=== PATIENT | male | born 1945 | race Caucasian/White ===

== ENCOUNTER → 2016-12-10 | Outpatient (CLI) | payer BC ==
[~2016-12-10] MED LIST: AMLO-110 PO; ASPI325T45 PO; ASPI81TA28 PO; ATOR-24 PO; COEN100C7; FERR325T62 PO; GABA-113 PO; LEVO75TA5 PO; LISI-461 PO; METO50TA16 PO; PRLSR20 PO; TRAZ50TA35 PO; UBIQ1CAP8 PO
[2016-12-10 17:38] LABS: BLOOD UREA NITROGEN 25 mg/dl (7-18); BUN/CREATININE RATIO 19.3 (10-20); CALCIUM 9.1 mg/dl (8.5-10.1); CARBON DIOXIDE 29 mmol/L (21-32); CHLORIDE 105 mmol/L (98-107); GLUCOSE 96 mg/dl (70-99); POTASSIUM 4.7 mmol/L (3.5-5.1); SODIUM 141 mmol/L (136-145)
== END | disposition home or self-care (01) ==
LOC: C.LABPVFM 16:06
PROVIDERS: ATTEND Family Medicine
DX: G62.9 Polyneuropathy, unspecified (principal)

== ENCOUNTER → 2017-02-16 | Outpatient (CLI) | payer BC ==
[2017-02-16 18:23] LABS: BLOOD UREA NITROGEN 21 mg/dl (7-18); BUN/CREATININE RATIO 17.6 (10-20); CALCIUM 9.3 mg/dl (8.5-10.1); CARBON DIOXIDE 29 mmol/L (21-32); CHLORIDE 103 mmol/L (98-107); GLUCOSE 92 mg/dl (70-99); POTASSIUM 4.6 mmol/L (3.5-5.1); SODIUM 137 mmol/L (136-145)
[2017-02-16 18:35] LABS: CHOLESTEROL 134 mg/dl (0-200); CHOLESTEROL/HDL RATIO 2.6; HDL CHOLESTEROL 51 mg/dl; LDL CHOLESTEROL CALCULATED 63 mg/dl; TRIGLYCERIDES 99 mg/dl (0-150); VERY LOW DENSITY LIPOPROT CALC 20 mg/dl
== END | disposition home or self-care (01) ==
LOC: C.LABPVFM 11:21
PROVIDERS: ATTEND Family Medicine
DX: I25.10 Atherosclerotic heart disease of native coronary artery without angina pectoris (principal); I10 Essential (primary) hypertension; E03.9 Hypothyroidism, unspecified

== ENCOUNTER → 2017-02-17 | Outpatient (CLI) | payer BC ==
[~2017-02-17] MED LIST changes: +GADAVIST IV PRN
--- NOTE | 2017-02-17 18:47 | DIAGNOSTIC IMAGING REPORT ---
LUMBAR SPINE COMBINATION CLINICAL HISTORY: 71 years-old Male presenting with pain in the left hip radiating down to the left foot, trouble walking, symptomatic since November 2016. TECHNIQUE: Multisequence, multiplanar MR imaging of the lumbar spine was performed before and after the administration of intravenous contrast. IV contrast: 7.5 mL of Gadavist. COMPARISON: 10/29/2007. FINDINGS: Localizer images: Unremarkable. Normal lumbar lordosis. Vertebral body heights, alignment, and signal intensity preserved. Mild intervertebral disc desiccation with minimal height loss at L5-S1. Mild multilevel degenerative changes with disc bulges noted at most levels, further detailed below: T12-L1: Normal. L1-2: Mild disc bulge which minimally effaces the ventral thecal sac. No significant neural foraminal narrowing. L2-3: Minimal disc bulge without significant result. L3-4: Mild disc bulge with moderate right and mild left neural foraminal narrowing. In combination with ligamentum flavum hypertrophy, effacement of the thecal sac without evidence of cauda equina impingement. L4-5: Mild disc bulge results in moderate bilateral neural foraminal narrowing with possible mass effect on the exiting L4 nerve roots. Effacement of the ventral thecal sac without evidence of impingement of the cauda equina. L5-S1: Minimal disc bulge. In combination with facet hypertrophy, mild right and moderate left neural foraminal narrowing results. No significant spinal canal stenosis. Spinal cord ends in good position at superior endplate of L1. Cauda equina normal in morphology. Paraspinal musculature normal. No abnormal enhancement on postcontrast imaging. IMPRESSION: Multilevel degenerative changes not significantly progressed since the prior exam in 2007. Varying degrees of neural foraminal narrowing most severe at L4-5. No significant spinal canal stenosis. No abnormal enhancement. Electronically signed by: Miles Olivera M.D. 02/17/2017 6:45 PM Dictated Date/Time: 02/17/2017 6:30 PM
== END | disposition home or self-care (01) ==
LOC: C.MRI 17:38
PROVIDERS: ATTEND Family Medicine
DX: G62.9 Polyneuropathy, unspecified (principal); M54.16 Radiculopathy, lumbar region

== ENCOUNTER → 2017-06-08 | Outpatient (CLI) | payer BC ==
[~2017-06-08] MED LIST changes: -ASPI325T45 PO; -FERR325T62 PO; -GADAVIST IV PRN; -UBIQ1CAP8 PO
--- NOTE | 2017-06-08 16:03 | DIAGNOSTIC IMAGING REPORT ---
TWO VIEW CHEST CLINICAL HISTORY: Pleural plaques. FINDINGS: PA and lateral chest radiographs are compared to study dated 03/05/2016 and correlated with chest CT dated 08/21/14. The patient is status post midline sternotomy. The heart is mildly enlarged and there is atherosclerotic calcification of the thoracic aorta. The pulmonary vasculature is noncongested. Calcified pleural plaques are similar to previous. There is no evidence of airspace consolidation or pleural effusion. Scattered calcified granulomas are similar to previous. There is no pneumothorax. The skeletal structures are osteopenic. The bony thorax appears intact. IMPRESSION: 1. Mild cardiomegaly with no acute cardiopulmonary abnormality. 2. 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 Electronically signed by: Topher Hicks M.D. 06/08/2017 4:02 PM Dictated Date/Time: 06/08/2017 4:00 PM
== END | disposition home or self-care (01) ==
LOC: C.RAD1850 15:24
PROVIDERS: ATTEND Internal Medicine Pulmonary Disease
DX: J92.0 Pleural plaque with presence of asbestos (principal)

== ENCOUNTER → 2017-06-08 | Outpatient (CLI) | payer BC | END | disposition home or self-care (01) | LOC: C.LAB1850 13:59 | PROVIDERS: ATTEND Internal Medicine Pulmonary Disease | DX: R91.1 Solitary pulmonary nodule (principal) ==

== ENCOUNTER → 2017-07-22 | Outpatient (CLI) | payer BC ==
[~2017-07-22] MED LIST changes: -AMLO-110 PO; +AMLO5TAB3 PO
[2017-07-22 14:20] LABS: ALBUMIN 3.9 gm/dl (3.4-5.0); ALKALINE PHOSPHATASE 107 U/L (45-117); BLOOD UREA NITROGEN 25 mg/dl (7-18); CALCIUM 9.1 mg/dl (8.5-10.1); CARBON DIOXIDE 26 mmol/L (21-32); CREATININE 1.36 mg/dl (0.60-1.40); GLUCOSE 87 mg/dl (70-99); POTASSIUM 4.3 mmol/L (3.5-5.1); SODIUM 138 mmol/L (136-145); TOTAL PROTEIN 7.2 gm/dl (6.4-8.2)
[2017-07-22 14:24] LABS: ALT/SGPT 33 U/L (12-78); AST/SGOT 17 U/L (15-37); CHOLESTEROL 172 mg/dl (0-200); LDL CHOLESTEROL CALCULATED 89 mg/dl
== END | disposition home or self-care (01) ==
LOC: C.LABPVFM 08:36
PROVIDERS: ATTEND Family Medicine
DX: I10 Essential (primary) hypertension (principal); E78.5 Hyperlipidemia, unspecified

== ENCOUNTER → 2017-08-12 | Outpatient (CLI) | payer BC ==
[~2017-08-12] MED LIST changes: +AMLO-110 PO; -AMLO5TAB3 PO
[2017-08-12 13:28] LABS: BLOOD UREA NITROGEN 21 mg/dl (7-18); CALCIUM 8.9 mg/dl (8.5-10.1); CARBON DIOXIDE 28 mmol/L (21-32); CREATININE 1.26 mg/dl (0.60-1.40); GLUCOSE 84 mg/dl (70-99); SODIUM 137 mmol/L (136-145)
== END | disposition home or self-care (01) ==
LOC: C.LABPVFM 08:29
PROVIDERS: ATTEND Internal Medicine Cardiovascular Disease
DX: I10 Essential (primary) hypertension (principal)

== ENCOUNTER 2021-01-07 07:05 | Observation (INO) ==
--- NOTE | 2021-01-02 16:12 | Anesthesiology Consultation ---
Date of Service January 02, 2021 Assessment & Plan (1) Encounter for pre-operative examination: - COVID screening: Per assessment on 01/02: No known COVID-19 positive contacts or current COVID-19 related symptoms. Travel screen- Patient returned from [facility] to [place] 12/29. Patient vaccinated. Patient had preop COVID testing done 01/01; [place]- which was negative. Given proximity of travel to preop COVID testing, will order [place] for AM DOS. - Heart/vascular office visit (12/19/20): "he is a moderate risk to proceed with surgery for his cholecystectomy. His RCRI calculates to 6% 30-day risk for , MO, or cardiac arrest. I am hopeful that we can get his exertional angina under control before his surgery. Otherwise he should probably have a cardiac catheterization prior to surgery which would push his surgery back at least 6 months. In that event we will need to discuss with patient and surgery whether pushing his surgery back is reasonable for if his indications for cholecystectomy have become more urgent." - Heart/vascular addendum (12/28/20): Phone call followup. Patient denies chest pain. " He should let me know when he starts doing his regular walks with hills if the chest pain comes back. I reiterated to him that we need to make sure that his chest pain is under control before he would go for surgery that is planned for the . He will give me a call on his return to let me know if he has any further chest discomfort." > I called patient 01/02 for an update. He states for the past few days he has been resuming his normal regular walks (including hills) and he has had no chest pain or CURRAN. - Preop labs: No CBC obtained. Will order for AM DOS Chart Review Chart Review: Acceptable Risk for Surgery (pending CBC/evaluation AM DOS) and Patient NOT seen in Pre Admission Testing History Surgery Operation Date: 01/07/21 09:50 Proposed Procedures p Laparoscopic Cholecystectomy - Yuri Lafleur MD, FACS Height/Weight Height: 5 ft 9 in Weight: 77.111 kg Allergies Allergy/AdvReac Type Severity Reaction Status Date / Time No Known Allergies Allergy Verified 12/21/20 11:40 Medications Home Medications Medication Instructions Recorded Confirmed Last Taken amlodipine 5 mg tablet 5 mg PO BID 06/01/19 12/21/20 Unknown lisinopril 20 mg tablet 20 mg PO QAM 06/01/19 12/21/20 Unknown rosuvastatin 40 mg tablet 20 mg PO HS 06/06/19 12/21/20 Unknown metoprolol succinate 25 mg 25 mg PO BID tab 10/18/20 12/21/20 Unknown tablet,extended release 24 hr nitroglycerin 0.4 mg sublingual 0.4 mg SUBLINGUAL Q5M PRN 10/18/20 12/21/20 Unknown tablet omeprazole 20 mg capsule,delayed 20 mg PO BID cap 10/18/20 12/21/20 Unknown release Coq10 Otc 120 mg PO QPM 12/21/20 12/21/20 Unknown aspirin [Aspir-81] 81 mg PO QPM 12/21/20 12/21/20 Unknown isosorbide mononitrate 30 mg PO QAM 12/21/20 12/21/20 Unknown levothyroxine 75 mcg PO QAM 12/21/20 12/21/20 Unknown Past Medical History Medical History (Updated 01/02/21 @ 16:01 by Carmina Antoine) CAD (coronary artery disease) CABG x4 (04/2013)- Follows with Dr. Hogan Dyslipidemia Erectile dysfunction Hiatal hernia Insomnia Lumbar radiculopathy Nephrolithiasis Peripheral neuropathy Pleural plaque with presence of asbestos Retinal detachment Hx, no surgical intervention Solitary pulmonary nodule Under surveillance by Dr. Gandara Vertigo Remote hx 4+ years ago Past Family History Family History Sister Breast cancer Father Myocardial infarction Heart disease Grandfather Myocardial infarction Other Coronary heart disease Denies family history of Ovarian cancer Prostate cancer Colorectal cancer Past Surgical History Surgical History (Updated 01/02/21 @ 15:58 by Carmina Antoine) H/O colonoscopy (~2012) History of dental surgery Implants History of esophagogastroduodenoscopy (EGD) History of lithotripsy S/P CABG x 4 CABG x4 (04/2013) Social History Smoking Status: Former smoker Smoking End Date: QUIT 40 YRS AGO Hx Alcohol Use: Yes Alcohol type: wine alcohol intake frequency: a few times a week Hx Substance Use: No Lab Results Anesthesia Preop Results Results Anesthesia Widget: Na 141 mmol/L (136-145) 11/15/20 K 4.4 mmol/L (3.5-5.1) 11/15/20 Cl 112 mmol/L (98-107) H 11/15/20 CO2 26 mmol/L (21-32) 11/15/20 BUN 25 mg/dl (7-18) H 11/15/20 Creat 1.20 mg/dl (0.6-1.4) 11/15/20 Glucose Level 101 mg/dl (70-99) H 11/15/20 TSH 2.330 uIu/ml (0.300-4.500) 11/15/20 HA1c 6.0 % (4.5-5.6) H 11/15/20 Testing Laboratory Results Electrocardiogram Date: 01/01/21 Sinus bradycardia 56 bpm. Incomplete right bundle branch block. Chest X-Ray Date: 05/28/20 FINDINGS: There are postsurgical changes of a midline sternotomy. The heart is normal in size. There is no failure. There are bilateral calcified pleural plaques. There is a stable 6 mm right midlung zone nodule, likely postinflammatory. There are a few scattered calcified granulomas. There is no focal parenchymal consolidation. There are no pleural effusions. IMPRESSION: Persistent calcified bilateral pleural plaques. No active disease in the chest. Echocardiogram Date: 11/17/20 Prior cardiology office visit note, patient had echo performed November 2020 with "normal ejection fraction though somewhat hyperdynamic possibly secondary to dehydration. No wall motion abnormalities. He has top normal pulmonary artery pressures." Attempts to obtain official report unsuccessful.
[~2021-01-07 07:05] MED LIST changes: -AMLO-110 PO; -ASPI81TA28 PO; -ATOR-24 PO; -COEN100C7; -GABA-113 PO; -LEVO75TA5 PO; -LISI-461 PO; +LR 15ML/HR IV SCH; -METO50TA16 PO; -PRLSR20 PO; -TRAZ50TA35 PO; +cefUROXime 1,500 MG in DEXTROSE 5% 100 ML IV SCH
[2021-01-07 07:34] LABS: Basophils # (auto) 0.01 K/uL (0-0.2); Basophils % (auto) 0.2 %; Eosinophils # (auto) 0.14 K/uL (0-0.5); Eosinophils % (auto) 2.3 %; Hematocrit (blood only) 40.1 % (42-52); Hemoglobin 13.7 g/dL (14.0-18.0); Immature Granulocytes # (auto) 0.01 K/uL (0.00-0.02); Immature Granulocytes % (auto) 0.2 %; Lymphocytes # (auto) 1.32 K/uL (1.2-3.4); Lymphocytes % (auto) 21.5 %; Mean Corpuscular Hemoglobin 31.6 pg (25-34); Mean Corpuscular Volume 92.6 fL (80-100); Mean Platelet Volume 9.5 fL (7.4-10.4); Monocytes # (auto) 0.56 K/uL (0.11-0.59); Monocytes % (auto) 9.1 %; Neutrophils % (auto) 66.7 %; Platelet Count 172 K/uL (130-400); RDW Coefficient of Variation 13.6 % (11.5-14.5); RDW Standard Deviation 46.3 fL (36.4-46.3); Red Blood Count 4.33 M/uL (4.7-6.1); White Blood Count 6.14 K/uL (4.8-10.8)
[2021-01-07 07:38] LABS: Mean Corpuscular Hgb Conc 34.2 g/dL (32-36)
[2021-01-07] MEDS ORDERED: HYDROmorphone INJ 1 MG/ML SYRINGE IV PRN ×2 (08:20→12:46)
[2021-01-07] MEDS ORDERED: PROMETHAZINE HCL 12.5 MG in SODIUM CHLORIDE 0.9% 50 ML IV PRN (08:20)
[2021-01-07] MEDS ORDERED: fentaNYL citrate 100 MCG/2 ML VIAL IV PRN (08:20)
[2021-01-07] MEDS ORDERED: NALOXONE HCL 0.4 MG/1 ML VIAL/CARP IV PRN (08:20)
[2021-01-07] MEDS ORDERED: LABETALOL HCL IV 5 MG/ML 20ML IV PRN (08:20)
[2021-01-07] MEDS ORDERED: ATROPINE SULFATE 0.1 MG/ML 10ML SYR IV PRN (08:20)
[2021-01-07] MEDS ORDERED: ePHEDrine sulfate 50 MG/ML AMP IV PRN (08:20)
[2021-01-07] MEDS ORDERED: FLUMAZENIL 0.1 MG/1 ML 10 ML VIAL IV PRN (08:20)
[2021-01-07] MEDS ORDERED: ONDANSETRON INJ 2 MG/ML 2 ML VIAL IV PRN (08:20)
[2021-01-07] MEDS ORDERED: BUPIVACAINE 0.5 % 5 MG/1 ML MPF 30ML VIAL ONE (08:35)
[2021-01-07] MEDS ORDERED: fentaNYL citrate 100 MCG/2 ML VIAL ONE ×2 (08:47→09:12)
[2021-01-07] MEDS ORDERED: MIDAZOLAM HCL 1 MG/ML 2ML VIAL ONE (08:47)
[2021-01-07] MEDS ORDERED: LIDOCAINE 2% 2 ML VIAL/AMP(20MG/ML) INFIL ONE (08:47)
[2021-01-07] MEDS ORDERED: PHENYLEPHRINE 100MCG/ML 5ML SYR ONE (09:19)
[2021-01-07] MEDS ORDERED: ePHEDrine sulfate 50 MG/ML SYR ONE (09:19)
[2021-01-07] MEDS ORDERED: ACETAMINOPHEN 1000 MG/100 ML IV IV ONE (09:20)
[2021-01-07] MEDS ORDERED: ROCURONIUM BROMIDE 10 MG/ML 5 ML VIAL IV ONE (09:34)
[2021-01-07] MEDS ORDERED: GLYCOPYRROLATE 0.2 MG/ML VIAL ONE (09:34)
[2021-01-07] MEDS ORDERED: NEOSTIGMINE METHYLSULFATE 1 MG/ML 10ML VIAL ONE (09:34)
[2021-01-07] MEDS ORDERED: OPTIRAY 300 100mL IV PRN (09:59)
--- NOTE | 2021-01-07 10:46 | Fluoroscopy Report ---
FL cholangiogram OR CLINICAL HISTORY: CHOLANGIOGRAMendoscopic cholecystectomy COMPARISON STUDY: None FLUOROSCOPY TIME: 27 seconds. NUMBER OF FLUOROSCOPIC IMAGES: 1 FINDINGS: A single intraoperative fluoroscopic spot images provided for interpretation. There is an apparent balloon catheter within the common hepatic duct near the hilum. There is dilatat ion of the left lobe hepatic ducts. The right lobe hepatic ducts or not visualized. The common bile d uct is nonvisualized. IMPRESSION: 1. Single intraoperative fluoroscopic spot film. The common bile duct was nonvisualized. The right he patic ducts were not visualized. There is dilatation of the left lobe hepatic ducts. ACT 112: Negative or not required by law. Electronically signed by: Kobe Pierre M.D. 01/07/2021 10:44 AM
[2021-01-07] MEDS ORDERED: ACETAMINOPHEN 1,000 MG/100 ML VIAL IV ONE (10:54)
--- NOTE | 2021-01-07 10:54 | Post Operative Brief Note ---
PG Immediate Post Op with CF Date of Surgery January 07, 2021 Pre & Post Diagnosis Operation Date: 01/07/21 08:30 Pre-Op Diagnosis: Chronic Cholecystitis Post-Op Diagnosis: Chronic Cholecystitis, common bile duct injury, adhesions I identified the patient and participated in the time-out.: Yes Procedure Operation Date: 01/07/21 08:30 Actual Procedures p Laparoscopic Cholecystectomy, with Cholangiogram(Not Applicable) - Yuri Lafleur MD, FACS Surgeon Yuri Lafleur MD, FACS Commissary Production Supervisor Holly Cervantes Estimated Blood Loss 10 Findings Consistent with Post-Op Diagnosis Specimens Specimen Description: A: Gallbladder and Contents Drains Marcell-Gilliland Drain (15 fr and 19 fr )
--- NOTE | 2021-01-07 11:44 | Operative Report (OR) ---
NAME OF OPERATION: Laparoscopic cholecystectomy with cholangiogram. PREOPERATIVE DIAGNOSIS: Biliary colic. POSTOPERATIVE DIAGNOSIS: Biliary colic with severe chronic cholecystitis, adhesions, and common bile duct injury. SURGEON: Yuri Lafleur MD SANDING MACHINE OPERATOR OR TENDER: Tanner Cervantes PA-C ANESTHESIA: General. DESCRIPTION OF PROCEDURE: The patient was brought into the operating room and placed on the operating table in supine position. His abdomen was prepped and draped in the usual fashion. A 0.5% plain Marcaine was used to anesthetize all incisions. An incision was made above the umbilicus, carrying dissection down, placing a Veress needle producing pneumoperitoneum and placing an 11 mm port. Under visualization, three 5 mm ports were placed, one cephalad and two laterally. On inspection of the gallbladder, he had chronic adhesions to the gallbladder and the gallbladder was chronically thickened and scarred. On taking these adhesions down, the emerson hepatis was somewhat distorted because of the adhesions. Therefore, I placed an additional port to retract the tissue in the emerson hepatis. Dissection through the emerson hepatis identified what I felt was the cystic duct going into the gallbladder, it was mobilized and then clipped. It was relatively wide and I did place at least two additional clips and then on my further dissection, I was somewhat concerned that this may be the common bile duct. It was very adherent to the gallbladder, drained normal looking bile, on further proximal dissection it appeared to continue away from the gallbladder medially which is when I became concerned that this was the common bile duct. There was probably 3 cm in length of the ductal structure. Therefore, I performed cholangiography which did fill what I thought was the proximal common bile duct and intrahepatic ducts, specifically on the left side. I did not visualize the right side well, possibly obstructed by my balloon. At this point, I decided that it would be better to not place any additional clips on the duct, leave it open and place drains. The balloon on my cannula was at least 2 cm into the ductal structure indicating a relatively long segment of duct coming from the liver. The gallbladder was removed from the liver bed, placed into an Endobag. A 19 round Marcell-Gilliland drain was placed through a lateral 5 mm port site and then a 15 round Marcell-Gilliland drain through the more middle upper 5 mm port site. These were secured using 3-0 nylon. They were placed in the subhepatic space. The gallbladder was removed through the umbilical site. All ports were removed. The fascia at the umbilicus was closed using 0 PDS suture and the skin reapproximated at all incisions using 4-0 nylon. The patient was transferred to recovery room in stable condition. Job ID: [id number] [facility]
--- NOTE | 2021-01-07 11:44 | Anesthesiology Progress Note ---
Date of Service January 07, 2021 Anesthesia Post Procedure Vital Signs Vital Signs: Temp Pulse Pulse Resp BP BP Pulse Ox 01/07/21 11:40 64 14 127/63 96 01/07/21 11:30 36.1 C L 55 L 14 127/57 L 95 01/07/21 11:20 57 L 14 108/56 L 97 01/07/21 11:10 60 14 116/63 96 01/07/21 11:00 77 14 131/69 98 01/07/21 10:54 36.1 C L 70 18 143/60 H 98 01/07/21 07:34 36.5 C 101 H 20 178/81 H 96 Pain Intensity Right Abdomen: Pain Intensity: 5 Transfer of Care Handoff Completed per policy Notes Mental Status: alert / awake / arousable Patient Amnestic to Procedure: Yes Nausea / Vomiting: adequately controlled Pain: adequately controlled Airway Patency, RR, SpO2: stable & adequate BP & HR: stable & adequate Hydration State: stable & adequate Anesthetic Complications: no major complications apparent
[2021-01-07] MEDS ORDERED: NITROGLYCERIN SL 0.4 MG/TAB TAB SL PRN (12:46)
[2021-01-07] MEDS ORDERED: PROMETHAZINE HCL 25 MG in SODIUM CHLORIDE 0.9% 50 ML IV PRN (12:46)
[2021-01-07] MEDS ORDERED: PIPERACILL/TAZOBAC CONSULT ACTIVE PRN (12:46)
--- NOTE | 2021-01-07 12:59 | Surgery Progress Note ---
Date of Service January 07, 2021 Assessment & Plan (1) S/P laparoscopic cholecystectomy: Patient status post laparoscopic cholecystectomy and common bile duct injury with leakage Cholangiogram confirmed from my standpoint injury to the common bile duct Common bile duct left open with drains placed, patient draining bilious fluid His vital signs are stable I have discussed this with his and the fact that the patient will need to be transferred to a tertiary care center I have discussed the patient with Dr. Srivastava, surgeon at [facility] and they have accepted the patient Patient will be transferred as soon as a bed is available I have discussed this with the patient and his Admission and Anticipated Discharge Date Admission Date: January 07, 2021 Results & Data ([facility]) Vital Signs (Past 12 Hours) Vital Signs Temp Pulse Pulse Resp BP BP Pulse Ox 01/07/21 12:53 36.4 C L 72 18 136/64 94 01/07/21 12:15 64 14 127/66 95 01/07/21 12:00 36.4 C L 63 14 116/54 L 95 01/07/21 11:50 64 14 126/58 L 96 01/07/21 11:40 64 14 127/63 96 01/07/21 11:30 36.1 C L 55 L 14 127/57 L 95 01/07/21 11:20 57 L 14 108/56 L 97 01/07/21 11:10 60 14 116/63 96 01/07/21 11:00 77 14 131/69 98 01/07/21 10:54 36.1 C L 70 18 143/60 H 98 01/07/21 07:34 36.5 C 101 H 20 178/81 H 96 PG Care Time/CCT Total # of Minutes Spent Total Time Spent with Patient: Total time spent is greater than 50% in coordination of care (as documented) at patient's floor/unit and/or counseling patient: Coding Level of Care Code None Diagnoses S/P laparoscopic cholecystectomy Z90.49
[2021-01-07 13:08] LABS: Hematocrit (blood only) 36.5 % (42-52); Hemoglobin 12.5 g/dL (14.0-18.0); Immature Granulocytes # (auto) 0.02 K/uL (0.00-0.02); Immature Granulocytes % (auto) 0.2 %; Lymphocytes # (auto) 0.52 K/uL (1.2-3.4); Lymphocytes % (auto) 4.1 %; Mean Corpuscular Hemoglobin 31.6 pg (25-34); Mean Corpuscular Hgb Conc 34.2 g/dL (32-36); Mean Corpuscular Volume 92.2 fL (80-100); Mean Platelet Volume 9.9 fL (7.4-10.4); Monocytes # (auto) 0.12 K/uL (0.11-0.59); Neutrophils # (auto) 11.95 K/uL (1.4-6.5); Neutrophils % (auto) 94.7 %; Platelet Count 168 K/uL (130-400); RDW Coefficient of Variation 13.2 % (11.5-14.5); RDW Standard Deviation 45.2 fL (36.4-46.3); Red Blood Count 3.96 M/uL (4.7-6.1); White Blood Count 12.61 K/uL (4.8-10.8)
[2021-01-07] MEDS ORDERED: PIPERACILLIN/TAZOBACTAM 3.375 GM in DEXTROSE 5% 100 ML IV ONE (13:30)
[2021-01-07 13:46] LABS: Albumin Level 3.4 gm/dl (3.4-5.0); BUN Creatinine Ratio 18.4 (10-20); Calcium 8.7 mg/dl (8.5-10.1); Creatinine Clr Calc Pharmacy 52.3 ml/min; Est GFR (Non-African American) 56.9 ml/min; Globulin 3.3 gm/dl (2.5-4.0); Potassium 4.1 mmol/L (3.5-5.1); Total Protein 6.7 gm/dl (6.4-8.2)
[2021-01-07] MEDS: PROMETHAZINE HCL 12.5 MG in SODIUM CHLORIDE 0.9% 50 ML IV PRN ×2 (13:49→19:21)
[2021-01-07] MEDS: HYDROmorphone INJ 0.5 MG/0.5 ML SYR IV PRN ×2 (13:50→18:19)
[2021-01-07 13:56] LABS: Bilirubin Direct 0.1 mg/dl (0-0.2); Bilirubin,Total 0.5 mg/dl (0.2-1); Phosphorus 2.7 mg/dl (2.5-4.9)
--- NOTE | 2021-01-07 13:56 | Hospitalist Consultation ---
Date of Consultation January 07, 2021 Assessment & Plan (1) S/P laparoscopic cholecystectomy: Mr. 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 Patient currently complains of RUQ pain that radiates to his right posterior shoulder and he also complains of nausea -- he will be getting an anti-emetic and an analgesic as soon as the nurse returns. He denies any vomiting. He denies any fevers, chills, chest discomfort or any angina pectoris. He denies any shortness of breath, cough, or pleuritic chest discomfort. Intra-operative Cholangiogram 01/07/21: A single intraoperative fluoroscopic spot images provided for interpretation. There is an apparent balloon catheter within the common hepatic duct near the hilum. There is dilatation of the left lobe hepatic ducts. The right lobe hepatic ducts or not visualized. The common bile duct is nonvisualized. IMPRESSION: 1. Single intraoperative fluoroscopic spot film. The common bile duct was nonvisualized. The right hepatic ducts were not visualized. There is dilatation of the left lobe hepatic ducts. Surgical drains placed and patient is being transferred to [facility] as soon as a bed is available. -- Patient is hemodynamically stable at the present time, and he is getting IV Zosyn. (2) Hx of CABG: CAD s/p CABG x 5 Vessels (SIMMS to LAD, SVG to PDA, Sequential SVG to OM1, D1, OM2) April 2013. -- No angina pectoris. -- Continue Aspirin 81 mg daily. -- Continue Metoprolol Succinate ER 25 mg b.i.d. -- Continue Imdur ER 30 mg daily. -- Continue Lisinopril 20 mg daily. -- Continue Rosuvastatin 40 mg daily. (3) Hypertension: -- Continue Metoprolol Succinate ER 25 mg b.i.d. -- Continue Imdur ER 30 mg daily. -- Continue Lisinopril 20 mg daily. -- Continue Amlodipine 5 mg b.i.d.. (4) Hypercholesterolemia: -- Continue Rosuvastatin 40 mg daily. (5) GERD (gastroesophageal reflux disease): -- Continue PPI. Supervising Physician Co-Signing Physician Notes Reviewed JL note discussed with him briefly. This is a 75-year-old male who was here for elective cholecystectomy, complicated by transection of the patient's common bile duct. The patient has since been transferred to [facility] for higher level of care and is no longer being cared for at this institution. History of Present Illness Reason for Consultation: -- s/p Laparoscopic Cholecystectomy complicated by Bile Duct Injury. -- CAD s/p CABG. Requesting Physician: Yuri Lafleur MD, FACS Attending Physician: Cuco Serrano DO History of Present Illness Mr. 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 [facility] Hospitalists consulted for Post-op Medical Management. Patient currently complains of RUQ pain that radiates to his right posterior shoulder and he also complains of nausea -- he will be getting an anti-emetic and an analgesic as soon as the nurse returns. He denies any vomiting. He denies any fevers, chills, chest discomfort or any angina pectoris. He denies any shortness of breath, cough, or pleuritic chest discomfort. His vital signs are stable, and he is getting IV Zosyn. Due to the common bile duct injury, surgical drains were placed and patient is being transferred to [facility] as soon as a bed is available. Allergies Allergy/AdvReac Type Severity Reaction Status Date / Time No Known Allergies Allergy Verified 01/07/21 07:29 Home Medications Medication Instructions Recorded Confirmed Type amlodipine 5 mg tablet 5 mg PO BID 06/01/19 01/07/21 History lisinopril 20 mg tablet 20 mg PO QAM 06/01/19 01/07/21 History rosuvastatin 40 mg tablet 20 mg PO HS 06/06/19 01/07/21 History metoprolol succinate 25 mg 25 mg PO BID tab 10/18/20 01/07/21 History tablet,extended release 24 hr nitroglycerin 0.4 mg sublingual 0.4 mg SUBLINGUAL Q5M PRN 10/18/20 01/07/21 History tablet omeprazole 20 mg capsule,delayed 20 mg PO BID cap 10/18/20 01/07/21 History release Coq10 Otc 120 mg PO QPM 12/21/20 01/07/21 History aspirin 81 mg PO QPM 12/21/20 01/07/21 History isosorbide mononitrate 30 mg PO QAM 12/21/20 01/07/21 History levothyroxine 75 mcg PO QAM 12/21/20 01/07/21 History hydrocodone-acetaminophen 1 tab PO Q4H PRN #20 tab 01/07/21 Rx promethazine 25 mg PO Q6H PRN #10 tab 01/07/21 Rx Patient History Medical History CAD (coronary artery disease) CABG x4 (04/2013)- Follows with Dr. Hogan Dyslipidemia Erectile dysfunction Hiatal hernia Insomnia Lumbar radiculopathy Nephrolithiasis Peripheral neuropathy Pleural plaque with presence of asbestos Retinal detachment Hx, no surgical intervention Solitary pulmonary nodule Under surveillance by Dr. Gandara Vertigo Remote hx 4+ years ago Surgical History H/O colonoscopy (~2012) History of dental surgery Implants History of esophagogastroduodenoscopy (EGD) History of lithotripsy S/P CABG x 4 CABG x4 (04/2013) Family History Sister Breast cancer Father Myocardial infarction Heart disease Grandfather Myocardial infarction Other Coronary heart disease Denies family history of Ovarian cancer Prostate cancer Colorectal cancer Social History Smoking Status: Former smoker Smoking End Date: QUIT 40 YRS AGO; Second Hand Exposure: No; Hx Alcohol Use: Yes Alcohol type: wine Alcohol Intake Frequency: Monthly or Less Hx Substance Use: No Preferred Language: Slovenian Communication Ability: Effective Visual Impairment: No Limitations Hearing Ability: Normal Public Relations Required: No Beliefs That Will Affect Care: None marital status: Current Living Situation: Spouse current occupational status: retired Other Information That Helps Us Care for You: No Feels Safe at Home: Yes Safety Concerns: Feels Safe At This Time Childhood Exposure to Second-Hand Smoke: No caffeine: Yes Dental Care, Regularly: Yes Physical Activity Frequency: 5-6 Times per Week Seatbelt Use: always Sunscreen Use: Yes Assistive Devices: Glasses Assistive Devices Comment: IMPLANTS Review of Systems Review of Systems: All systems reviewed & are unremarkable except as noted in Subjective Physical Exam Physical Exam: GENERAL: Patient is lying in his bed, abdomen dressed, surgical drains in place. HEENT: Head is atraumatic, normocephalic. EOM's intact. Facies symmetric. No perioral cyanosis. NECK: No JVD. JVP is not elevated. Carotid upstrokes are + 2 bilaterally without obvious bruits. CHEST/LUNGS: Clear to auscultation throughout all lung mercado. No wheezes, rales, or crackles. CVS: S1 and S2 are regular without obvious murmurs, gallops, or rubs. PMI is nondisplaced. No lifts, heaves, or thrills. No abdominal aortic or renal bruits. ABDOMINAL EXAM: Surgical dressings and drains are in place. No masses, organomegaly, or tenderness. EXTREMITIES: No clubbing or cyanosis. No edema. Intact radial pulses bilaterally. NEUROLOGIC EXAM: Patient is awake, alert, and oriented. Pleasant and cooperative. Answers questions appropriately. Speech is clear. Results & Data Results & Data ([facility]) Vital Signs (Past 12 Hours) Vital Signs Temp Pulse Pulse Resp BP BP Pulse Ox 01/07/21 13:30 36.3 C L 68 20 120/56 L 92 01/07/21 13:09 36.3 C L 72 18 133/61 90 01/07/21 12:53 36.4 C L 72 18 136/64 94 01/07/21 12:15 64 14 127/66 95 01/07/21 12:00 36.4 C L 63 14 116/54 L 95 01/07/21 11:50 64 14 126/58 L 96 01/07/21 11:40 64 14 127/63 96 01/07/21 11:30 36.1 C L 55 L 14 127/57 L 95 01/07/21 11:20 57 L 14 108/56 L 97 01/07/21 11:10 60 14 116/63 96 01/07/21 11:00 77 14 131/69 98 01/07/21 10:54 36.1 C L 70 18 143/60 H 98 01/07/21 07:34 36.5 C 101 H 20 178/81 H 96 Laboratory Results Laboratory Results - last 24 hr 01/07/21 01/07/21 01/07/21 07:25 07:26 07:26 WBC 6.14 RBC 4.33 L Hgb 13.7 L Hct 40.1 L MCV 92.6 MCH 31.6 MCHC 34.2 RDW Std Deviation 46.3 RDW Coeff of Yajaira 13.6 Plt Count 172 MPV 9.5 Immature Gran % (Auto) 0.2 Neut % (Auto) 66.7 Lymph % (Auto) 21.5 [place] % (Auto) 9.1 Eos % (Auto) 2.3 Baso % (Auto) 0.2 Neut # (Auto) 4.10 Lymph # (Auto) 1.32 [place] # (Auto) 0.56 Eos # (Auto) 0.14 Baso # (Auto) 0.01 Immature Gran # (Auto) 0.01 Sodium Potassium Chloride Carbon Dioxide Anion Gap BUN Creatinine Est Cr Clr Drug Dosing Est GFR ( Amer) Est GFR (Non-Af Amer) BUN/Creatinine Ratio Glucose Calcium Phosphorus Total Bilirubin Direct Bilirubin AST ALT Alkaline Phosphatase Total Protein Albumin Globulin Albumin/Globulin Ratio COVID-19 Eval Order Covid19 [facility] SARS-CoV-2, RNA, NAAT NEGATIVE 01/07/21 01/07/21 12:55 12:55 WBC 12.61 H RBC 3.96 L Hgb 12.5 L Hct 36.5 L MCV 92.2 MCH 31.6 MCHC 34.2 RDW Std Deviation 45.2 RDW Coeff of Yajaira 13.2 Plt Count 168 MPV 9.9 Immature Gran % (Auto) 0.2 Neut % (Auto) 94.7 Lymph % (Auto) 4.1 [place] % (Auto) 1.0 Eos % (Auto) 0.0 Baso % (Auto) 0.0 Neut # (Auto) 11.95 H Lymph # (Auto) 0.52 L [place] # (Auto) 0.12 Eos # (Auto) 0.00 Baso # (Auto) 0.00 Immature Gran # (Auto) 0.02 Sodium 138 Potassium 4.1 Chloride 107 Carbon Dioxide 25 Anion Gap 6.0 BUN 23 H Creatinine 1.24 Est Cr Clr Drug Dosing 52.3 Est GFR ( Amer) 66.0 Est GFR (Non-Af Amer) 56.9 BUN/Creatinine Ratio 18.4 Glucose 154 H Calcium 8.7 Phosphorus 2.7 Total Bilirubin 0.5 Direct Bilirubin 0.1 AST 61 H ALT 71 Alkaline Phosphatase 91 Total Protein 6.7 Albumin 3.4 Globulin 3.3 Albumin/Globulin Ratio 1.0 COVID-19 Eval Order SARS-CoV-2, RNA, NAAT Medications Administered Medications amlodipine 5 mg tablet 5 mg PO BID 06/01/19 [History Confirmed 01/07/21] lisinopril 20 mg tablet 20 mg PO QAM 06/01/19 [History Confirmed 01/07/21] rosuvastatin 40 mg tablet 20 mg PO HS 06/06/19 [History Confirmed 01/07/21] metoprolol succinate 25 mg tablet,extended release 24 hr 25 mg PO BID tab 10/18/20 [History Confirmed 01/07/21] nitroglycerin 0.4 mg sublingual tablet 0.4 mg SUBLINGUAL Q5M PRN 10/18/20 [History Confirmed 01/07/21] omeprazole 20 mg capsule,delayed release 20 mg PO BID cap 10/18/20 [History Confirmed 01/07/21] Coq10 Otc 120 mg PO QPM 12/21/20 [History Confirmed 01/07/21] aspirin [Aspir-81] 81 mg PO QPM 12/21/20 [History Confirmed 01/07/21] isosorbide mononitrate 30 mg PO QAM 12/21/20 [History Confirmed 01/07/21] levothyroxine 75 mcg PO QAM 12/21/20 [History Confirmed 01/07/21] hydrocodone-acetaminophen 1 tab PO Q4H PRN #20 tab 01/07/21 [Rx] promethazine 25 mg PO Q6H PRN #10 tab 01/07/21 [Rx] Home Medications Amlodipine Besylate (Amlodipine Besylate 5 Mg Tab) 5 mg PO BID [facility] Stop: 07/21/21 20:59 Hydromorphone HCl (Hydromorphone Inj 0.5 Mg/0.5 Ml Syr) 0.5 mg IV Q3HWA PRN PRN Reason: Pain (1-5) Stop: 01/21/21 12:45 Last Admin: 01/07/21 13:50 Dose: 0.5 mg Documented by: Hydromorphone HCl (Hydromorphone Inj 1 Mg/Ml Syringe) 1 mg IV Q3HWA PRN PRN Reason: Pain (6-10) Stop: 01/21/21 12:45 Promethazine HCl 12.5 mg/ (Sodium Chloride) 50.5 mls @ 204 mls/hr IV Q6H PRN PRN Reason: Nausea And Vomiting Stop: 02/06/21 12:45 Last Admin: 01/07/21 13:49 Dose: 204 mls/hr Documented by: Promethazine HCl 25 mg/ Sodium (Chloride) 51 mls @ 204 mls/hr IV Q6H PRN PRN Reason: Nausea And Vomiting Stop: 02/06/21 12:45 Piperacillin Sod/Tazobactam (Sod 3.375 gm/ Dextrose) 115 mls @ 28.75 mls/hr IV Q8H [facility]; Protocol Stop: 01/17/21 12:45 Isosorbide Mononitrate (Isosorbide [place] Extended Rel 30 Mg Tabcr) 30 mg PO QAM [facility] Stop: 02/07/21 08:59 Levothyroxine Sodium (Levothyroxine Sodium 75 Mcg Tablet) 75 mcg PO DAILYBB [facility] Stop: 02/07/21 06:29 Lisinopril (Lisinopril 20 Mg Tab) 20 mg PO QAM [facility] Stop: 02/07/21 08:59 Metoprolol Succinate (Metoprolol Succ 25mg Ext Rel Tab) 25 mg PO BID [facility] Stop: 02/06/21 20:59 Miscellaneous Information (Piperacill/Tazobac Consult Active) 1 ea N/A UD PRN PRN Reason: Consult Stop: 02/06/21 12:45 Nitroglycerin (Nitroglycerin Sl 0.4 Mg/Tab Tab) 0.4 mg SL Q5M PRN PRN Reason: Chest Pain Stop: 02/06/21 12:45 Pantoprazole Sodium (Pantoprazole 40 Mg Tab) 40 mg PO BID [facility]; Protocol Stop: 02/06/21 20:59 Rosuvastatin Calcium (Rosuvastatin Calcium 20 Mg Tab) 20 mg PO HS [facility] Stop: 02/06/21 20:59 PG Care Time/CCT Total # of Minutes Spent Total Time Spent with Patient: Total time spent is greater than 50% in coordination of care (as documented) at patient's floor/unit and/or counseling patient:40 Coding Level of Care Code 77670 Inpt Consult Level 4 Diagnoses S/P laparoscopic cholecystectomy Z90.49 Hx of CABG Z95.1 Hypertension I10 Hypercholesterolemia E78.00 GERD (gastroesophageal reflux disease) K21.9 Time Spent (min) 55
--- NOTE | 2021-01-07 15:15 | Discharge Summary (DS) ---
DISCHARGE: Patient is to be transferred to [facility], possibly today or tomorrow. HISTORY OF PRESENT ILLNESS: The patient is a 75-year-old male brought into the hospital today for el ective cholecystectomy. The patient did undergo a laparoscopic cholecystectomy. He had significant adhesions and during the dissection what I felt was the cystic duct, was likely his common bile duct, which was transected. I did perform cholangiogram, which showed proximal hepatic ducts. I did not clip the residual common bile duct. It was left open with 2 drains placed. The patient did tolerate the procedure and is doing relatively well. He does have bilious drainage. I did discuss his case with surgeons at [facility] and we will be transferring him to [place] as soon as a bed i s available for additional higher level of care. Currently, the patient is on IV antibiotics and his cholangiogram will be transferred with him. Job ID: [id number]
[2021-01-07] MEDS ORDERED: PIPERACILLIN/TAZOBACTAM 3.375 GM in DEXTROSE 5% 100 ML IV SCH (18:00)
[2021-01-07] MEDS ORDERED: METOPROLOL SUCC 25MG EXT REL TAB PO SCH (21:00)
[2021-01-07] MEDS ORDERED: amLODIPine BESYLATE 5 MG TAB PO SCH (21:00)
[2021-01-07] MEDS ORDERED: PANTOprazole 40 MG TAB PO SCH (21:00)
[2021-01-07] MEDS ORDERED: ROSUVASTATIN CALCIUM 20 MG TAB PO SCH (21:00)
[2021-01-08] MEDS ORDERED: LEVOTHYROXINE SODIUM 75 MCG TABLET PO SCH (06:30)
[2021-01-08] MEDS ORDERED: ISOSORBIDE MONO EXTENDED REL 30 MG TABCR PO SCH (09:00)
[2021-01-08] MEDS ORDERED: lisinopril 20 MG TAB PO SCH (09:00)
== END 2021-01-07 20:35 | disposition short-term general hospital (02) ==
LOC: ASU 07:05 → INTOOBSV 10:54 → 2N 10:54